=== PATIENT | female | born 1945 | race Caucasian/White ===

== ENCOUNTER 2017-02-16 15:34 | Emergency (ER) | payer MEDICARE, OTHER ==
--- NOTE | 2017-02-16 16:01 | C.PDOC ---
History Of Present Illness Patient is a 71 y/o female that presents to the ED for evaluation of painful mass in the vagina for the past few days. Pt states she given Rx by PMD, Dr. Valladares, 1 week ago, however pt states her symptoms were worsening which prompted her to visit ED. Otherwise, denies any fever, chills, nausea, vomiting, pelvic pain, vaginal bleeding, vaginal discharge, urinary symptoms, back pain, or any other associated symptoms at this time. Time Seen by Provider: 02/16/17 15:54 Chief Complaint (Nursing): Abnormal Skin Integrity History Per: Patient History/Exam Limitations: no limitations Onset/Duration Of Symptoms: Days Current Symptoms Are (Timing): Still Present Quality Of Discomfort: "Pain" Associated Symptoms: denies: Fever, Chills, Nausea, Vomiting, Diarrhea, Loss Of Appetite, Back Pain, Chest Pain, Constipation, Urinary Symptoms Alleviating Factors: None Recent travel outside of the [place]: No Additional History Per: Patient Abnormal Vaginal Bleeding: No Past Medical History Reviewed: Historical Data, Nursing Documentation, Vital Signs Vital Signs: Last Vital Signs Temp 98.2 F 02/16/17 16:01 Pulse 63 02/16/17 16:01 Resp 16 02/16/17 16:01 BP 138/74 02/16/17 16:01 Pulse Ox 95 02/16/17 16:01 - Medical History PMH: COPD, HTN, Hypothyroidism Surgical History: Comment Only: Coronary Stent (2002 x2) Family History: States: No Known Family Hx - Social History Hx Alcohol Use: No Hx Substance Use: No Review Of Systems Except As Marked, All Systems Reviewed And Found Negative. Constitutional: Negative for: Fever, Chills Gastrointestinal: Negative for: Nausea, Vomiting, Abdominal Pain Genitourinary: Positive for: Other (painful mass in vagina). Negative for: Dysuria, Frequency, Hematuria, Vaginal Discharge, Vaginal Bleeding, Pelvic Pain , Rash Musculoskeletal: Negative for: Back Pain Skin: Negative for: Rash Physical Exam - Physical Exam Appears: Non-toxic, No Acute Distress Skin: Normal Color, Warm, Dry Head: Atraumatic, Normacephalic Eye(s): bilateral: Normal Inspection, EOMI Neck: Normal ROM, Supple Chest: Symmetrical, No Tenderness Cardiovascular: Rhythm Regular, No Murmur Respiratory: Normal Breath Sounds, No Rales, No Rhonchi, No Wheezing Gastrointestinal/Abdominal: Soft, No Tenderness Pelvic: Normal External Exam, No Vaginal Bleeding, No Vaginal Discharge, Mass ( 2cm of tender erythematous mass with swelling in the vaginal vault) Neurological/Psych: Oriented x3, Normal Speech, Normal Cognition Medical Decision Making Medical Decision Making: abscess drained by dr cabezas. advises to d/c on bactirm, outpt f/u on saturday. Disposition - Disposition Referrals: Kendell Alfredo [Staff Provider] - [facility] at [facility] [Outside] [facility] [Outside] [facility] [Outside] Disposition: HOME/ ROUTINE Disposition Time: 16:49 Condition: STABLE Additional Instructions: please follow up as directed by obgyn. return to er with worsening symptoms or concerns. Prescriptions: Sulfamethoxazole/Trimethoprim [Bactrim DS 800 mg-160 mg] 1 tab PO BID #14 tab Instructions: Abscess (ED), Abscess Incision and Drainage (ED) - Clinical Impression Clinical Impression: Abscess, vagina - Scribe Statement The provider has reviewed the documentation as recorded by the Eleniibjerry Diamond All medical record entries made by the Eleniibjerry were at my direction and personally dictated by me. I have reviewed the chart and agree that the record accurately reflects my personal performance of the history, physical exam, medical decision making, and the department course for this patient. I have also personally directed, reviewed, and agree with the discharge instructions and disposition.
[2017-02-16 16:03] VITALS: BP 138/74; PULSE 63; RESP 16; TEMP 98.2; O2SAT 95
[2017-02-16] MEDS ORDERED: Lidocaine 1% Inj (20ml) ONE (16:36)
[2017-02-16] MEDS ORDERED: Silver Nitrate Topical - Stick ONE (16:56)
--- NOTE | 2017-02-16 17:58 | CP.PCM.CON ---
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 Social hx denies tobacco,alcohol or illicit drug use Review of Systems - Review of Systems All systems: reviewed and no additional remarkable complaints except - Cardiovascular Cardiovascular: absent: Chest Pain, Dyspnea - Respiratory Respiratory: absent: Cough, Chest Congestion - Gastrointestinal Gastrointestinal: absent: Diarrhea, Nausea, Vomiting - Genitourinary Genitourinary: absent: Dysuria, Urinary Frequency - Reproductive: Female Reproductive:Female: Menopausal Additional comments: vulvar/vaginal pain - Neurological Neurological: absent: Abnormal Gait, Abnormal Hearing - Psychiatric Psychiatric: absent: Anxiety Past Patient History - Past Social History Smoking Status: Former Smoker - CARDIAC Hx Hypertension: Yes - PULMONARY Hx Chronic Obstructive Pulmonary Disease (COPD): Yes - ENDOCRINE/METABOLIC Hx Diabetes Mellitus Type 2: Yes Hx Hypothyroidism: Yes - MUSCULOSKELETAL/RHEUMATOLOGICAL Hx Falls: No - PSYCHIATRIC Hx Anxiety: No Hx Depression: No Hx Substance Use: No - SURGICAL HISTORY Hx Coronary Stent: (2002 x2) Meds Home Medications: Home Medication List Medication Instructions Recorded Confirmed Type Sulfamethoxazole/Trimethoprim 1 tab PO BID #14 tab 02/16/17 Rx [Bactrim DS 800 mg-160 mg] Allergies/Adverse Reactions: Allergies Allergy/AdvReac Type Severity Reaction Status Date / Time No Known Allergies Allergy Unverified 02/16/17 15:59 Physical Exam - Constitutional Appears: Well, No Acute Distress - Respiratory Exam Respiratory Exam: Clear to Auscultation Bilateral, NORMAL BREATHING PATTERN - Cardiovascular Exam Cardiovascular Exam: REGULAR RHYTHM - GI/Abdominal Exam GI & Abdominal Exam: Soft. absent: Tenderness - Exam Additional comments: Vulva-right labia with 2x3 cm mass protruding into the vaginal wall; mass indurated and fluctuant partially left labia with no lesions - Extremities Exam Extremities exam: Negative for: calf tenderness Results - Vital Signs Recent Vital Signs: Last Vital Signs Temp 98.2 F 02/16/17 16:01 Pulse 63 02/16/17 16:01 Resp 16 02/16/17 16:01 BP 138/74 02/16/17 16:01 Pulse Ox 95 02/16/17 16:01 - Labs Labs: Laboratory Results - last 24 hr 02/16/17 15:58 POC Glucose (mg/dL) 170 H Assessment & Plan (1) Vulvar abscess Assessment and Plan: Patient with right sided vulvar abscess -I&D perforned.Wound packed with iodoform -cultures done -start bactrim -follow up with obgyn in 2 days -keep blood sugars under control procedure note informed consent obtained verbally area cleaned with betadine 1%lidocaine infiltrated in the skin for local anesthesia. Stab incision made with #11 blade copious amount of pus mixed blood discharge noted.cultures done.loculations broken with rosalie clamp and the abscess drained until very small amount of drainage noted.Bleeding noted from skin edges and hence skin edges cauterised with silver nitrate. Area packed with iodoform. Patient tolerated the procedure well Sponge, lap and needle count correct Status: Acute
== END 2017-02-16 17:05 | disposition home or self-care (01) ==
LOC: C.ER 15:34
DX: N76.4 Abscess of vulva (principal)